=== PATIENT | male | born 1970 | race Asian ===

== ENCOUNTER 2021-01-11 16:59 | Emergency (ER) | payer OTHER ==
[~2021-01-11] VITALS: Ht 165.1 cm; Wt 77.3 kg
[2021-01-11] MEDS ORDERED: OMEP10 PO (17:05)
[2021-01-11] MEDS ORDERED: LISI-661 PO (17:06)
[2021-01-11] MEDS ORDERED: SILVER SULFADIAZINE 1% 25 GM CREAM TP ONE (17:15)
[2021-01-11] MEDS ORDERED: DOXYCYCLINE HYCLATE 100 MG TABLET PO ONE (17:30)
[2021-01-11] MEDS ORDERED: PERTUSS(ACELL),DIPH,TET VAC/PF 0.5 ML SYRINGE IM. ONE (17:30)
[2021-01-11] MEDS ORDERED: MORPHINE SULFATE 4 MG/ML SYRINGE IM ONE (17:45)
[2021-01-11] MEDS ORDERED: ONDANSETRON HCL 4 MG TABLET PO ONE (17:45)
[2021-01-11 19:05] VITALS: BP 144/79
== END 2021-01-11 19:28 | disposition home or self-care (01) ==
LOC: EMS 16:59
DX: T25.222A Burn of second degree of left foot, initial encounter (principal); T23.272A Burn of second degree of left wrist, initial encounter; T23.202A Burn of second degree of left hand, unspecified site, initial encounter; K21.9 Gastro-esophageal reflux disease without esophagitis; E78.00 Pure hypercholesterolemia, unspecified; I10 Essential (primary) hypertension; Z79.899 Other long term (current) drug therapy; X19.XXXA Contact with other heat and hot substances, initial encounter; Y93.89 Activity, other specified; Y92.89 Other specified places as the place of occurrence of the external cause; Y99.8 Other external cause status
CPT/HCPCS: 16020; 90471; 90715; 96372; 99284; J2270; Q0162